=== PATIENT | male | born 1950 | race Caucasian/White ===

== ENCOUNTER 2020-04-01 14:16 | Emergency (ER) | payer MEDICARE ==
[~2020-04-01] VITALS: Ht 190.5 cm; Wt 85.9 kg
[~2020-04-01 14:16] MED LIST: ALBUTEROL2.5 MG/3 M INH; ASPIR 8181 MG PO; AZITHROMYCIN250 MG PO; AZOPT10 ML OD; CARVEDILOL3.125 MG PO; DEXAMETHASONE4 MG PO; DICLOFENAC SODI50 MG PO; FUROSEMIDE20 MG PO; HYDROCODON-ACE1 EAC8 PO; IPRAT-ALBUT 0.5-3 ML INH; PULMICORT0.5 MG/2 M INH; SYMBICORT 16010.2 GM INH; TIMOPTIC5 M1 OD; VENTOLIN HFA18 GM INH; WELCHOL625 MG PO
--- OUTSIDE RECORDS SUMMARY | 2020-04-01 14:18 | XMS ---
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 Slava has no Care Guidelines for this patient. Laura VISIT COUNT (12 MO.) 1 DEBRA S[place] TOTAL 1 NOTE: Visits indicate total known visits. ED/UCC VISIT TRACKING (12 MO.) 04/01/2020 14:16 DEBRA Nu[facility]ez [place] TYPE: Emergency COMPLAINT: - LEFT LEG, SWOLLEN/SORE INPATIENT VISIT TRACKING (12 MO.) No inpatient visits to display in this time frame [email or web address]
[2020-04-01] MEDS ORDERED: MORPHINE SULFAT15 MG PO (14:33)
[2020-04-01] MEDS ORDERED: MORPHINE SULFAT30 M2 PO (14:33)
[2020-04-01] MEDS ORDERED: KEFLEX500 MG PO (17:07)
== END 2020-04-01 18:20 | disposition home or self-care (01) ==
LOC: ED 14:16
DX: L03.116 Cellulitis of left lower limb (principal); E87.1 Hypo-osmolality and hyponatremia; J44.9 Chronic obstructive pulmonary disease, unspecified; I50.9 Heart failure, unspecified; Z87.891 Personal history of nicotine dependence; Z88.8 Allergy status to other drugs, medicaments and biological substances; Z85.118 Personal history of other malignant neoplasm of bronchus and lung; Z79.899 Other long term (current) drug therapy; Z79.891 Long term (current) use of opiate analgesic
CPT/HCPCS: 80053; 83605; 85025; 93971; 96365; 99284-25; J0696